=== PATIENT | female | born 1985 | race Caucasian/White ===

== ENCOUNTER 2018-07-15 03:33 | Inpatient (IN) | payer BC ==
[2018-07-15] MEDS ORDERED: METHYLERGONOVINE 0.2 MG/ML 1 ML AMP IM PRN (03:49)
[2018-07-15] MEDS ORDERED: TERBUTALINE 1 MG/ML VIAL SQ PRN (03:49)
[2018-07-15] MEDS ORDERED: OXYTOCIN 10 UNIT/ML 1 ML VIAL IM PRN (03:49)
[2018-07-15] MEDS ORDERED: LIDOCAINE 0.5% (PF) 5 MG/ML (50 ML SDV) SQ PRN (03:49)
[2018-07-15] MEDS ORDERED: CARBOPROST TROMETHAMINE 250 MCG/ML 1 ML AMP IM PRN (03:49)
[2018-07-15] MEDS ORDERED: BUTORPHANOL 1 MG/ML 1 ML VIAL IV PRN (03:52)
[2018-07-15 03:58] VITALS: BMI 45.5
[2018-07-15] MEDS ORDERED: OXYTOCIN 30 UNITS/500 ML NS 30 UNIT in SALINE 1 500ML.BAG IV SCH (04:00)
[2018-07-15 04:16] LABS: Basophils % (A) 0 %; Eosinophils # (A) 0.1 k/uL (0-0.7); Eosinophils % (A) 1 %; HCT 38.2 % (34.0-46.0); HGB 12.3 gm/dL (11.4-16.0); Lymphocytes # (A) 1.4 k/uL (1.0-4.8); Lymphocytes % (A) 16 %; MCH 26.8 pg (25.0-35.0); MCHC 32.1 g/dL (31.0-37.0); MCV 83.3 fL (80.0-100.0); Mean Platelet Volume 7.9; Monocytes # (A) 0.3 k/uL (0-1.0); Monocytes % (A) 4 %; Neutrophils # (A) 7.1 k/uL (1.3-7.7); Neutrophils % (A) 79 %; Platelet Count 170 k/uL (150-450); RBC 4.59 m/uL (3.80-5.40); RDW 14.1 % (11.5-15.5)
[2018-07-15] MEDS: LACTATED RINGERS 1,000 ML IV SCH ×2 (04:51→05:33)
[2018-07-15] MEDS ORDERED: ROPIVACAINE 100 MG, fentaNYL (PF) 200 MCG in SODIUM CHLORIDE 0.9% 76 ML EPIDURAL ONE (07:22)
--- NOTE | 2018-07-15 07:51 | P.HPOB ---
History of Present Illness H&P Date: 07/15/18 This is a 32-year-old white female 3 para 2001 EDC 07/14/2018 who presents at 40 and one sevenths weeks. Patient states she is having regular strong uterine contractions. Fetus is been active throughout the . She denies fluid leakage or vaginal bleeding. Past surgical history significant for LEEP procedure of the cervix in 2006, C- section 2016, low transverse incision. Past medical history is negative. Current medications vitamins daily. ALLERGIES penicillin to which reports a childhood reaction. Family history is significant for seizure disorder and her son, and congenital heart defect of a previous delivery with ultimate demise. Social history patient is a teacher, she has never been a smoker, she denies alcohol or drug use. She is . history is significant for blood type A+, rubella status immune. VDRL testing, urine culture, hepatitis B surface antigen, HIV testing, gonorrhea and chlamydia cultures all negative. Rupee strep cultures negative. One-hour Glucola 133. Recent ultrasound for estimated weight 83rd percentile with elevated KEEGAN of 19.7 cm. On exam this is a pleasant white female, she is 5 foot 6 inches approximate 280 pounds, blood pressure on admission 135/87. The general physical exam is within normal limits. Cervix at time of this dictation is 8 cm dilated, 90% effaced, -1 to -2 station, vertex presentation. Artificial amniorrhexis reveals abundant light meconium-stained fluid. heart rate is in the 140s with overall good variability. Uterine contractions approximately every 5-6 minutes apart. Epidural has been placed per her request. Impression: 40 and one sevenths weeks intrauterine . Here in active spontaneous labor. Previous low transverse section planning . Light meconium-stained fluid. Plan: Continue close maternal and surveillance. Anticipate normal spontaneous vaginal delivery. Review of Systems Constitutional: Reports as per HPI Past Medical History Past Medical History: No Reported History History of Any Multi-Drug Resistant Organisms: None Reported Past Surgical History: Section Additional Past Surgical History / Comment(s): LEEP procedure Past Anesthesia/Blood Transfusion Reactions: No Reported Reaction Past Psychological History: No Psychological Hx Reported Smoking Status: Never smoker Past Alcohol Use History: None Reported Past Drug Use History: None Reported - Past Family History Mother Family Medical History: No Reported History Son(s) Additional Family Medical History / Comment(s): Congenital heart defect Medications and Allergies Home Medications Medication Instructions Recorded Confirmed Type Pnv,Calcium 72/Iron/Folic Acid 1 each PO DAILY 07/11/18 07/15/18 History [ Plus Tablet] Allergies Allergy/AdvReac Type Severity Reaction Status Date / Time Penicillins Allergy Unknown Verified 07/15/18 03:41 Exam Vital Signs Temp Pulse Resp BP Pulse Ox 07/15/18 03:55 96.7 F L 106 H 18 135/87 98 07/15/18 03:44 96.7 F L 106 H 18 135/87 98 Intake and Output 07/14/18 07/15/18 07/15/18 22:59 06:59 14:59 Other: # Voids 1 Weight 127.913 kg see dictation please Results Result Diagrams: 07/15/18 04:10 Assessment and Plan Assessment: 40 1/7 wks, active labor, planning . Light meconium fluid. Plan: Continue close maternal and surveillance. Anticipate . Time with Patient: Less than 30
[2018-07-15] MEDS ORDERED: SIMETHICONE 80 MG CHEWABLE PO PRN (10:29)
[2018-07-15] MEDS ORDERED: HYDROCORTISONE 2.5% RECTAL CREAM 30 GM TUBE RECTAL PRN (10:29)
[2018-07-15] MEDS ORDERED: ACETAMINOPHEN TAB 325 MG TAB PO PRN (10:29)
[2018-07-15] MEDS ORDERED: ZOLPIDEM 5 MG TAB PO PRN (10:29)
[2018-07-15] MEDS ORDERED: HYDROcodone/APAP 5-325MG 1 EACH TAB PO PRN (10:29)
[2018-07-15] MEDS ORDERED: BENZOCAINE/MENTHOL SPRAY 1 GM/SPRAY AEROSOL TOPICAL PRN (10:29)
[2018-07-15] MEDS ORDERED: diphenhydrAMINE 25 MG CAP PO PRN (10:29)
[2018-07-15] MEDS ORDERED: WITCH HAZEL 1 EACH MED..PAD TOPICAL PRN (10:29)
[2018-07-15] MEDS ORDERED: diphenhydrAMINE 50 MG/ML 1 ML VIAL IVP PRN ×2 (10:29)
[2018-07-15] MEDS ORDERED: diphenhydrAMINE ELIXIR 25 MG/10 ML CUP PO PRN (10:29)
[2018-07-15] MEDS ORDERED: diphenhydrAMINE 50 MG CAP PO PRN (10:29)
[2018-07-15] MEDS ORDERED: LANOLIN CREAM 5 GM TUBE TOPICAL PRN (10:29)
--- NOTE | 2018-07-15 10:29 | P.PROBDLV ---
Vaginal Delivery Note - . Vaginal Delivery Note: This is a 32-year-old white female 3 para 2000 EDC 07/14/2018 at 40 and one sevenths weeks' gestation. Patient presented this morning in active spontaneous labor. She has had 1 vaginal delivery followed by one low transverse section. Plan is for . Please see admitting H&P for details. Artificial amniorrhexis revealed light meconium-stained fluid. Oxytocin was started and titrated per hospital protocol. Epidural was placed per her request. She became completely dilated and began the second stage of labor. Perineal body was prepped and draped in usual sterile fashion. Ultimately the 's head delivered left occiput transverse. There was no nuchal cord noted. The right or anterior shoulder was gently delivered from underneath the pubic symphysis at which time the oropharynx, nasopharynx, and external nares were bulb suctioned on the perineal body. Patient was officially delivered of a liveborn male at 1010 hrs. Umbilical cord was doubly clamped and ligated, he was handed to waiting nurses for evaluation where scores of 8 and 9 at one and 5 minutes respectively were given. There was a true knot in the cord 1. Trivascular cord noted. Placenta delivered spontaneously, it was inspected and noted be fully intact with trivascular cord and meconium-stained membranes at 1013 hrs. The uterus is then massaged. Inspection of the cervix, vagina, perineum, periurethral, and perirectal areas revealed a small second-degree perineal laceration. This was repaired in the usual sterile fashion with a running Vicryl stitch. All sponge needle and enhancement counts are correct at the end of the procedure. Total estimated blood loss 300 mL's. Infant weighed 4765 g or 10 lbs. 8 oz. Patient is declining circumcision for her son.
[2018-07-15] MEDS: IBUPROFEN 600 MG TAB PO PRN ×2 (11:01→20:13)
[2018-07-15] MEDS ORDERED: OXYTOCIN 20 UNITS/1000 ML NS 1,000 ML IV SCH (12:00)
[2018-07-16] MEDS: SENNOSIDES-DOCUSATE SODIUM 1 EACH TAB PO SCH ×2 (00:11→07:45)
[2018-07-16] MEDS: LACTATED RINGERS 1,000 ML IV SCH (00:11)
[2018-07-16] MEDS: IBUPROFEN 600 MG TAB PO PRN (06:27)
--- NOTE | 2018-07-16 09:26 | P.PNOBGVD ---
Subjective - Subjective Principal diagnosis: PPD 1 Interval history: Patient did well overnight. She is ambulating and voiding without difficulty this morning, she states her lochia is minimal. She states her pain is well- controlled with oral medications. She denies concerns. Patient reports: Reports appetite normal, Reports voiding normally, Reports pain well controlled, Reports ambulating normally : doing well (In the nursery on IV fluids/antibiotics) Objective - Latest Vital Signs Latest vital signs: Vital Signs Temp Pulse Resp BP Pulse Ox 07/16/18 08:00 97.5 F L 88 16 117/69 07/16/18 04:00 97.5 F L 88 16 124/73 98 07/15/18 23:41 97.8 F 98 16 106/79 07/15/18 20:00 98.2 F 100 16 135/83 07/15/18 16:00 98.4 F 90 16 128/78 07/15/18 12:05 96 18 114/65 07/15/18 12:00 96 18 114/65 07/15/18 11:47 93 18 118/72 07/15/18 11:17 101 H 18 127/72 07/15/18 11:02 103 H 18 124/71 07/15/18 10:47 97 18 125/71 07/15/18 10:32 100 18 126/81 07/15/18 10:17 97.3 F L 105 H 18 124/58 Intake and Output 07/15/18 07/16/18 07/16/18 22:59 06:59 14:59 Intake Total 300 Output Total 250 Balance 50 Intake: Oral 300 Output: Estimated Blood Loss 250 Other: # Voids 1 2 1 - Exam Extremities: Present: normal, edema Abdomen: Present: normal appearance Uterus: Present: normal, firm Assessment and Plan (1) Term Current Visit: Yes Status: Acute Code(s): Z34.80 - ENCOUNTER FOR SUPRVSN OF NORMAL , UNSP TRIMESTER SNOMED Code(s): 24391803 (2) H/O section Current Visit: Yes Status: Acute Code(s): Z98.891 - HISTORY OF UTERINE SCAR FROM PREVIOUS SURGERY SNOMED Code(s): 846025031 (3) Meconium stained amniotic fluid, delivered, current hospitalization Current Visit: Yes Status: Acute Code(s): O77.0 - LABOR AND DELIVERY COMPLICATED BY MECONIUM IN AMNIOTIC FLUID SNOMED Code(s): 152598909 (4) Second degree perineal laceration during delivery Current Visit: Yes Status: Acute Code(s): O70.1 - SECOND DEGREE PERINEAL LACERATION DURING DELIVERY SNOMED Code(s): 0562953 Plan: Patient continues to do well status post vaginal after , will continue routine care and anticipate discharge home tomorrow.
[2018-07-17 01:18] VITALS: RESP 18
[2018-07-17] MEDS: SENNOSIDES-DOCUSATE SODIUM 1 EACH TAB PO SCH ×3 (03:25→15:45)
--- NOTE | 2018-07-17 11:15 | P.DS ---
Providers Date of admission: 07/15/18 03:53 Expected date of discharge: 07/17/18 Attending physician: Freida Lange Primary care physician: Stated None - Discharge Diagnosis(es) (1) Term Current Visit: Yes Status: Acute (2) H/O section Current Visit: Yes Status: Acute (3) Meconium stained amniotic fluid, delivered, current hospitalization Current Visit: Yes Status: Acute (4) Second degree perineal laceration during delivery Current Visit: Yes Status: Acute Hospital Course: This is a 32-year-old 3 para 2000 with estimated due date of that presented to labor and delivery at 40 1/7 weeks. Patient was noted to be in active labor. Patient progressed through labor eventually becoming complete began pushing and had a normal spontaneous vaginal delivery of a viable male infant weight of 10 pounds 8 ounces, second degree midline vaginal laceration was sustained during delivery this is repaired in the usual fashion. Patient's course has been uneventful she is ambulating and voiding without difficulty. She is pumping and bottlefeeding, and states her pain is well- controlled. She denies concerns and is ready for discharge home on this day #2 Patient Condition at Discharge: Good Plan - Discharge Summary New Discharge Prescriptions: No Action Pnv,Calcium 72/Iron/Folic Acid [ Plus Tablet] 1 each PO DAILY Discharge Medication List Pnv,Calcium 72/Iron/Folic Acid [ Plus Tablet] 1 each PO DAILY 07/11/18 [ History] Follow up Appointment(s)/Referral(s): Freida Lange MD [STAFF PHYSICIAN] - 1 Week Patient Instructions/Handouts: Vaginal Delivery (DC), Vaginal Delivery (GEN) Discharge Disposition: HOME SELF-CARE
[2018-07-17 15:48] VITALS: BP 126/88; PULSE 96; TEMP 97.8
== END 2018-07-17 21:30 | disposition home or self-care (01) | DRG 807 ==
LOC: FBPOP 03:33 → 4FBP 03:53
PROVIDERS: ADMIT Obstetrics & Gynecology; ATTEND Obstetrics & Gynecology
PROC: 00HU33Z Insertion of Infusion Device into Spinal Canal, Percutaneous Approach (ICD-10-PCS; principal; 2018-07-15)
PROC: 10907ZC Drainage of Amniotic Fluid, Therapeutic from Products of Conception, Via Natural or Artificial Opening (ICD-10-PCS; principal; 2018-07-15)
PROC: 3E0R3NZ Introduction of Analgesics, Hypnotics, Sedatives into Spinal Canal, Percutaneous Approach (ICD-10-PCS; principal; 2018-07-15)
PROC: 0KQM0ZZ Repair Perineum Muscle, Open Approach (ICD-10-PCS; principal; 2018-07-15)
PROC: 10E0XZZ Delivery of Products of Conception, External Approach (ICD-10-PCS; principal; 2018-07-15)
DX: O77.0 Labor and delivery complicated by meconium in amniotic fluid (principal); Z37.0 Single live birth; O70.1 Second degree perineal laceration during delivery; O34.211 Maternal care for low transverse scar from previous cesarean delivery; Z3A.40 40 weeks gestation of pregnancy; Z82.0 Family history of epilepsy and other diseases of the nervous system; Z88.0 Allergy status to penicillin; O69.2XX0 Labor and delivery complicated by other cord entanglement, with compression, not applicable or unspecified
CPT/HCPCS: 59025; 85025; 86850; 86900; 86901; 99213